=== PATIENT | male | born 1990 | race Two or more races ===

== ENCOUNTER 2016-08-03 01:24 | Emergency (ER) | payer SELFPAY ==
[~2016-08-03] VITALS: Ht 182.9 cm; Wt 72.6 kg
[2016-08-03 03:27] VITALS: BP 124/74
== END 2016-08-03 03:27 | disposition home or self-care (01) ==
LOC: ER 01:26
DX: F10.129 Alcohol abuse with intoxication, unspecified (principal); R73.09 Other abnormal glucose
CPT/HCPCS: 82962; 99283; A4606; Z7610